=== PATIENT | male | born 1945 | race Caucasian/White ===

== ENCOUNTER → 2020-01-24 09:53 | Outpatient (CLI) | payer MEDICARE, SELFPAY ==
[2020-01-25 10:30] LABS: COVID19 Sendout Not Detected (Not Detect)
== END ==
PROVIDERS: Family Provider Family Medicine; PCP Family Medicine; Visit Provider Physician Assistant
DX: Z01.812 Encounter for preprocedural laboratory examination (principal)
CPT/HCPCS: 87635

== ENCOUNTER 2020-01-27 08:09 | Day surgery (SDC) | payer MEDICARE, SELFPAY ==
[2020-01-27] MEDS: PROPARACAINE 0.5% OPHTH SOL 2 DROPS EYE-OP (10:37)
[2020-01-27 10:38] VITALS: BP 151/84; PULSE 67; RESP 16; TEMP 36.7; O2SAT 100; BMI 23.4
[2020-01-27] MEDS: CATARACT EYE COMPOUND (10 DROPS/SYRINGE) 3 DROPS EYE-OP (10:48)
--- NOTE | 2020-01-27 11:53 | P.OP_ITS ---
Operative Date/Time/Diagnoses Pre-op diagnosis: Nuclear Cataract Left eye Post-op diagnosis: same Procedure & Clinicians Same procedure as scheduled: Yes Surgeon: Justice Ching Anesthesia Type: MAC +/- and Sedation Operative Notes Procedure in detail: Patient brought to the operating suite. Tetracaine drops placed in the left eye. Patient was prepped and draped in sterile manner. Wire lid speculum was placed in the eye. Betadine drops were placed on the eye. This was irrigated. Lidocaine jelly was placed on the eye. A paracentesis port was created with a side-port blade. 0.1 mL 1% preservative free lidocaine was injected into the anterior chamber. The anterior chamber was deepened with viscoelastic. 2.6 mm keratome was used to create a temporal clear corneal incision. Cystotome and Utrata forceps were used to create continuous tear capsulorrhexis. Balanced salt solution was used to hydro dissect the nucleus. The phacoemulsification handpiece was inserted and the nucleus was removed using the stop and chop technique. The irrigation aspiration handpiece was inserted and the remaining cortex was removed. Anterior chamber was deepened with viscoe lastic. An Naik ZCB00 intraocular lens with a power of 22.5 was injected into the capsular bag. Irrigation aspiration handpiece was inserted and the remaining viscoelastic was removed. Incision was hydrated with balanced salt solution and found to be leak free with pressure with Weck-Karlene sponges. 0.1 mL Vigamox injected anterior chamber. 0.3 mL Kenalog 10 mg was injected subconjunctivally. Lid speculum was removed. The patient left the operating room in excellent condition. Complications: none Post-operative Condition: stable Disposition: same day surgery
--- NOTE | 2020-01-27 11:53 | PM.PREOP ---
Pre-operative Note Interval Note History & Physical reviewed/Exam performed by Physician: Yes Changes to H&P: No
[2020-01-27] MEDS: CHONDROIDTIN/SOD HYALURONATE 1.05 ML SYRINGE INTRAOCULA (12:12)
[2020-01-27] MEDS: MOXIFLOXACIN INJ 5 MG/ML VIAL EYE-OP (12:12)
[2020-01-27] MEDS: PHENYLEPHRINE/LIDOCAINE VIAL (OR) 0.2 ML EYE-OP (12:12)
[2020-01-27] MEDS: LIDOCAINE JELLY 2% 5 ML 1 APPLIC TOP (12:12)
[2020-01-27] MEDS: TRIAMCINOLONE 50 MG/5 ML VIAL INJ (12:13)
[2020-01-27] MEDS: BALANCED SALT IRRIG SOLN NO.2 500 ML, EPINEPHrine 1 MG IRR (12:13)
[2020-01-27] MEDS: TETRACAINE 0.5% OPHTH DROPS 4 ML 2 DROPS EYE-OP (12:13)
[2020-01-27 12:53] VITALS: BP 139/84; PULSE 64; RESP 16; TEMP 36.7; O2SAT 98
== END 2020-01-27 12:52 | disposition home or self-care (01) ==
PROVIDERS: PCP Family Medicine; Referring Provider Ophthalmology; Visit Provider Ophthalmology
PROC: (CPT 66984; principal; 2020-01-27 11:15)
DX: H25.12 Age-related nuclear cataract, left eye (principal); J45.909 Unspecified asthma, uncomplicated
CPT/HCPCS: 66984; J0171; J2250; J3010; J3301

== ENCOUNTER → 2020-02-07 10:36 | Outpatient (CLI) | payer MEDICARE, SELFPAY ==
[2020-02-08 18:28] LABS: COVID19 Sendout Not Detected (Not Detect)
== END ==
PROVIDERS: PCP Family Medicine; Visit Provider Physician Assistant
DX: Z01.812 Encounter for preprocedural laboratory examination (principal)
CPT/HCPCS: 87635

== ENCOUNTER 2020-02-10 08:45 | Day surgery (SDC) | payer MEDICARE, SELFPAY ==
[2020-02-10] MEDS: PROPARACAINE 0.5% OPHTH SOL 2 DROPS EYE-OP (09:43)
[2020-02-10 09:47] VITALS: BMI 23.7
[2020-02-10] MEDS: CATARACT EYE COMPOUND (10 DROPS/SYRINGE) 3 DROPS EYE-OP (09:47)
[2020-02-10 09:51] VITALS: BP 137/80; PULSE 65; RESP 18; TEMP 36.6; O2SAT 99
--- NOTE | 2020-02-10 10:47 | PM.PREOP ---
Pre-operative Note Interval Note History & Physical reviewed/Exam performed by Physician: Yes Changes to H&P: No
--- NOTE | 2020-02-10 10:48 | PM.OP.1 ---
Operative Date/Time/Diagnoses Pre-op diagnosis: Nuclear cataract right eye Procedure & Clinicians Procedure: Cataract Surgery Same procedure as scheduled: Yes Surgeon: Justice Ching Anesthesia Type: MAC +/- and Sedation Operative Notes Procedure in detail: Patient brought to the operating suite. Tetracaine drops placed in the right eye. Patient was prepped and draped in sterile manner. Wire lid speculum was placed in the eye. Betadine drops were placed on the eye. This was irrigated. Lidocaine jelly was placed on the eye. A paracentesis port was created with a side-port blade. 0.1 mL 1% preservative free lidocaine was injected into the anterior chamber. The anterior chamber was deepened with viscoelastic. 2.6 mm keratome was used to create a temporal clear corneal incision. Cystotome and Utrata forceps were used to create continuous tear capsulorrhexis. Balanced salt solution was used to hydro dissect the nucleus. The phacoemulsification handpiece was inserted and the nucleus was removed using the stop and chop technique. The irrigation aspiration handpiece was inserted and the remaining cortex was removed. Anterior chamber was deepened with viscoelastic. An Naik ZCB00 intraocular lens with a power of 22.0 was injected into the capsular bag. Irrigation aspiration handpiece was inserted and the remaining viscoelastic was removed. Incision was hydrated with balanced salt solution and found to be leak free with pressure with Weck-Karlene sponges. 0.1 mL Vigamox injected anterior chamber. 0.3 mL Kenalog 10 mg was injected subconjunctivally. Lid speculum was removed. The patient left the operating room in excellent condition. Complications: none Post-operative Condition: stable Disposition: same day surgery
--- NOTE | 2020-02-10 11:33 | PM.OP.1 ---
Operative Date/Time/Diagnoses Pre-op diagnosis: Nuclear Cataract Left eye Post-op diagnosis: same Procedure & Clinicians Same procedure as scheduled: Yes Surgeon: Justice Ching Anesthesia Type: MAC +/- and Sedation Operative Notes Procedure in detail: Patient brought to the operating suite. Tetracaine drops placed in the left eye. Patient was prepped. Patient had IV sedation and became very confused. No surgery was performed and he was taken to out patient for monitoring. Complications: none
[2020-02-10 11:36] VITALS: BP 130/68; PULSE 69; RESP 12; O2SAT 95
[2020-02-10 11:40] VITALS: BP 113/63; PULSE 62; RESP 11; O2SAT 97
--- NOTE | 2020-02-10 11:43 | SUR.PHASEI ---
Patient arrived in PACU very restless, confused, trying to climb out of bed.
--- NOTE | 2020-02-10 11:44 | SUR.PHASEI ---
Patient dozing. Currently relaxed.
[2020-02-10 11:45] VITALS: BP 107/64; PULSE 63; RESP 12; TEMP 36.3; O2SAT 95
--- NOTE | 2020-02-10 11:50 | SUR.PHASEI ---
Patient arouses to voice. States where he is, and date.
[2020-02-10 11:58] VITALS: BP 137/80; PULSE 59; RESP 12; O2SAT 93
--- NOTE | 2020-02-10 12:40 | P.OP_ITS ---
Operative Date/Time/Diagnoses Pre-op diagnosis: Nuclear cataract right eye Procedure & Clinicians Procedure: Cataract Surgery Same procedure as scheduled: Yes Surgeon: Justice Ching Anesthesia Type: MAC +/- and Sedation Operative Notes Procedure in detail: The patient had confusion and restlessness after IV sedation. He was transported to recovery and after reversal was given his symptoms resolved and he desired to proceed with surgery as planned. His reported that he has had similar symptoms after sedation for endoscopy previousl y. Patient brought to the operating suite. Tetracaine drops placed in the right eye. Patient was prepped and draped in sterile manner. Wire lid speculum was placed in the eye. Betadine drops were placed on the eye. This was irrigated. Lidocaine jelly was placed on the eye. A paracentesis port was created with a side-port blade. 0.1 mL 1% preservative free lidocaine was injected into the anterior chamber. The anterior chamber was deepened with viscoelastic. 2.6 mm keratome was used to create a temporal clear corneal incision. Cystotome and Utrata forceps were used to create continuous tear capsulorrhexis. Balanced salt solution was used to hydro dissect the nucleus. The phacoemulsification handpiece was inserted and the nucleus was removed using the stop and chop technique. The irrigation aspiration handpiece was inserted and the remaining cortex was removed. Anterior chamber was deepened with viscoelastic. An Naik ZCB00 intraocular lens with a power of 22.0 was injected into the capsular bag. Irrigation aspiration handpiece was inserted and the remaining viscoelastic was removed. Incision was hydrated with balanced salt solution and found to be leak free with pressure with Weck-Karlene sponges. 0.1 mL Vigamox injected anterior chamber. 0.3 mL Kenalog 10 mg was injected subconjunctivally. Lid speculum was removed. The patient left the operating room in excellent condition. Complications: none Post-operative Condition: stable Disposition: same day surgery
[2020-02-10] MEDS: CHONDROIDTIN/SOD HYALURONATE 1.05 ML SYRINGE INTRAOCULA (13:06)
[2020-02-10] MEDS: LIDOCAINE JELLY 2% 5 ML 1 APPLIC TOP (13:06)
[2020-02-10] MEDS: TETRACAINE 0.5% OPHTH DROPS 4 ML 2 DROPS EYE-OP (13:07)
[2020-02-10] MEDS: TRIAMCINOLONE 50 MG/5 ML VIAL INJ (13:07)
[2020-02-10] MEDS: BALANCED SALT IRRIG SOLN NO.2 500 ML, EPINEPHrine 1 MG IRR (13:07)
[2020-02-10] MEDS: PHENYLEPHRINE/LIDOCAINE VIAL (OR) 0.2 ML EYE-OP (13:11)
[2020-02-10] MEDS: MOXIFLOXACIN INJ 5 MG/ML VIAL EYE-OP (13:12)
--- NOTE | 2020-02-10 13:14 | SUR.OPER ---
Report from Dr. Maradiaga, Anestesiologist that reported patient had similar issue when midazolam was given during an endoscopy procedure. Plan: add allergy to list.
[2020-02-10 13:25] VITALS: BP 146/79; PULSE 62; RESP 16; TEMP 36.6; O2SAT 100
--- NOTE | 2020-02-10 13:42 | SUR.PHASEII ---
Pt left when ready, left in stable condition.
== END 2020-02-10 13:30 | disposition home or self-care (01) ==
PROVIDERS: PCP Family Medicine; Referring Provider Ophthalmology; Visit Provider Ophthalmology
PROC: (CPT 66984; principal; 2020-02-10 11:15)
DX: H25.12 Age-related nuclear cataract, left eye (principal); J45.909 Unspecified asthma, uncomplicated; R41.0 Disorientation, unspecified
CPT/HCPCS: 66984; J0171; J2250; J2704; J3010; J3301

== ENCOUNTER → 2021-05-05 11:39 | Outpatient (CLI) | payer MEDICARE, SELFPAY ==
--- NOTE | 2021-05-05 11:42 | DI.RAD.S_ITS ---
PROCEDURE: XR KUB INDICATIONS: Constipation assess stool load TECHNIQUE: One view of the abdomen acquired. COMPARISON: None. FINDINGS: Surgical changes and devices: None. Bowel: Non-specific bowel gas pattern. Moderate stool burden in the ascending colon. Soft tissues: No suspicious abdominal calcifications. Visualized solid organ contours appear normal in size. Bones: No suspicious bony lesions. IMPRESSION: Moderate stool burden in the ascending colon. Dictated by: James Curtis M.D. on 05/05/2021 at 13:53 Approved by: James Curtis M.D. on 05/05/2021 at 13:56
== END ==
PROVIDERS: PCP Family Medicine; Referring Provider Urology; Visit Provider Urology
DX: K59.03 Drug induced constipation (principal); R33.8 Other retention of urine; N48.5 Ulcer of penis; N40.1 Benign prostatic hyperplasia with lower urinary tract symptoms; M54.50 Low back pain, unspecified; N39.0 Urinary tract infection, site not specified; G89.29 Other chronic pain
CPT/HCPCS: 74018; 81002; 99215

== ENCOUNTER → 2021-05-31 09:31 | Outpatient (CLI) | payer MEDICARE, SELFPAY | PROVIDERS: PCP Family Medicine; Visit Provider Urology | DX: N30.00 Acute cystitis without hematuria (principal); N48.5 Ulcer of penis; N40.1 Benign prostatic hyperplasia with lower urinary tract symptoms; R33.8 Other retention of urine | CPT/HCPCS: 51798; 81002; 87077; 87086; 87186; 99214 ==

== ENCOUNTER 2021-07-14 07:44 | Day surgery (SDC) | payer MEDICARE, SELFPAY ==
[2021-07-12 14:09] VITALS: BMI 22.8
[2021-07-14] VITALS (12 sets, daily range): BP systolic 84–149; BP diastolic 46–86; PULSE 66–79; RESP 10–18; TEMP 36.1–36.8; O2SAT 90–100; BMI 22.8
--- NOTE | 2021-07-14 | PATH_ITS ---
[facility] Accession Number: [id number] . 01 Material submitted: . penile shaft - PENILE LESION . 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 - Positive for p16 high level expression by immunohistochemistry. - Negative for invasive malignancy. - Margins of excision appear clear of high-grade penile intraepithelial neoplasia. [facility] 07/19/2021 1552 Local . 01 Comment: An *immunostain to p16 is obtained on block A2, with the control stained appropriately, and shows uniform bandlike expression in the lesional epidermis. . * This test was developed and its performance characteristics determined by [facility]. It has not been cleared or approved by the U.S. Food and Drug Administration. The FDA has determined that such clearance or approval is not necessary. This test is used for clinical purposes. It should not be regarded as investigational or for research. . 01 Electronically signed: . Krystyna Lugo MD, Pathologist NPI- [id number] . 01 Gross description: . PENILE LESION: Received in formalin is 1 piece of SEGMENT OF SKIN measuring 2.0 x 1.5 x 0.6 cm which is inked serially sectioned and submitted in toto in 2 cassettes. /YADY 07/15/20212052 Local . 01 Pathologist provided ICD-10: D04.9 . 01 CPT . 193503, C05986 Performed at: 01 [facility] [address] [place] [address] [address], [place], [place] [id number] MD Richard Franklin MD Phone: [phone]
[2021-07-14] MEDS: LACTATED RINGERS 1,000 ML 42 ML IV (07:55)
--- NOTE | 2021-07-14 08:09 | SUR.OPER ---
Supine on padded OR bed, head on pillow, arms secured on padded arm boards at <90 degrees abduction, legs uncrossed, safety belt at thigh, tape over blanket over lower legs.
--- NOTE | 2021-07-14 08:20 | PM.PREOP ---
Pre-operative Note COVID-19 COVID-19 status: Negative Result date/Date tested (Pos, Neg/Pending): 07/11/21 Interval Note History & Physical reviewed/Exam performed by Physician: Yes Changes to H&P: No
[2021-07-14] MEDS: CEFAZOLIN 2 GM/20 ML SYRINGE IV (08:40)
[2021-07-14] MEDS: BUPIVACAINE 0.25% (PF) VIAL 30 ML INJ (09:06)
[2021-07-14] MEDS: BACITRACIN 28 GM OINT 1 APPLIC TOP (09:09)
--- NOTE | 2021-07-14 09:22 | PM.OP.1 ---
Procedure & Clinicians Procedure: Excision of penile lesion (squamous cell carcinoma in-situ) Same procedure as scheduled: Yes Indications: This is a very pleasant 75-year-old male who was in to Urology Clinic for other reasons and was noted to have an abnormality on his distal left ventral penis. This was biopsied and found to be squamous cell carcinoma in-situ. Patient returns at this time to have the lesion excised. Surgeon: Stevenson Santos Click Yes if Unassisted: Yes Anesthesia Type: General Operative Notes Findings: On the left ventral distal aspect of the penile shaft skin was a also to irregular glistening circumscribed lesion which is approximately 2 to 2-1/4 cm in diameter. It is freely mobile not attached and makes just a slight incursion on to the coronal aspect of the glans, the lesion is removed in its entirety with margin. No other abnormality is noted. Closure Type: primary Specimen(s): other (Penile shaft skin lesion in its entirety) Prosthetic devices, grafts, tissues, transplants, or devices: None Estimated Blood Loss (mL): 5 Blood products transfused: none Procedure in detail: After informed consent was obtained, the patient was identified and brought to the operating room. The patient was placed in a supine position on the table and anesthesia was induced and maintained. The patient was then prepped, draped and prepared for penile surgery in a sterile fashion. After prepping, draping, ensuring an adequate level of anesthesia the lesion was inspected. Lines of incision to include the margins were then marked with a marking pen and the lesion was sharply excised with scissor. Once of bleeding were controlled with electrocautery. Skin edges were then reapproximated with interrupted 2-0 chromic gut suture. The lesion was infiltrated with 0.25% plain Marcaine. Bacitracin was applied and the wound was stressed. The patient was then awakened having tolerated the procedure well. Patient was transferred to the postanesthesia care unit to be discharged to home and follow up my office in the next 10 days approximately. Complications: none Post-operative Condition: stable Disposition: PACU Plan for aftercare: Patient to be discharged home and follow up my office in approximately 10 -14 days.
--- NOTE | 2021-07-14 10:26 | SUR.PHASEII ---
pt's given discharge instructions. I explained discharge instructions to both pt and . BOth state they understand discharge instructions. Pt to be discharged with .
== END 2021-07-14 11:04 | disposition home or self-care (01) ==
PROVIDERS: PCP Student in an Organized Health Care Education/Training Program; Referring Provider Urology; Visit Provider Urology
PROC: (CPT 11623; principal; 2021-07-14 09:00)
DX: D07.4 Carcinoma in situ of penis (principal); N40.1 Benign prostatic hyperplasia with lower urinary tract symptoms; N13.8 Other obstructive and reflux uropathy; R33.9 Retention of urine, unspecified; K21.9 Gastro-esophageal reflux disease without esophagitis; J45.20 Mild intermittent asthma, uncomplicated
CPT/HCPCS: 11623; J0690; J2704; J3010